=== PATIENT | male | born 1955 | race Caucasian/White ===

== ENCOUNTER 2020-09-30 23:16 | Inpatient (IN) ==
[2020-09-30 23:41] LABS: Basophils # 0.1 K/mcL (0.0-0.2); Basophils % 0.5 %; Eosinophils # 0.3 K/mcL (0.0-0.6); Eosinophils % 1.8 %; Hematocrit 38.6 % (37.5-50.1); Hemoglobin 12.5 g/dL (12.9-16.9); Immature Granulocytes % 0.4 % (0-4); Lymphocytes # 2.7 K/mcL (0.6-4.6); Lymphocytes % 17.7 %; Mean Corpuscular HGB Conc 32.4 g/dL (31.6-35.5); Mean Corpuscular Hemoglobin 29.6 pg (28.0-33.3); Mean Corpuscular Volume 91.3 fL (83.0-100.0); Mean Platelet Volume 9.1 fL (9.4-12.4); Monocytes # 0.9 K/mcL (0.0-1.3); Monocytes % 6.1 %; Neutrophils # 11.4 K/mcL (1.6-8.9); Platelet Count 242 K/mcL (140-400); Red Blood Count 4.23 M/mcL (4.19-5.50); Red Cell Distribution Width 14.8 % (11.5-14.5); Segmented Neutrophils % 73.5 %; White Blood Count 15.5 K/mcL (4.3-11.1)
[2020-09-30 23:48] LABS: Prothrombin Time 11.8 Seconds (9.4-12.1)
[2020-09-30 23:50] LABS: Activated Partial Thrombo Time 25.9 Seconds (26.0-36.0)
[2020-10-01] MEDS ORDERED: Isovue-370 500 ML BOTTLE IVP ONE (00:02)
[2020-10-01 00:05] LABS: Albumin 4.1 g/dL (3.5-5.7); Albumin/Globulin Ratio 1.4 (1.1-2.2); Bilirubin,Indirect 0.4 mg/dL (0.0-1.0); Bilirubin,Total 0.4 mg/dL (0.3-1.0); Calcium 8.7 mg/dL (8.6-10.3); Magnesium 1.9 mg/dL (1.6-2.6); Potassium 3.7 mEq/L (3.5-5.1); Total Protein 7.1 g/dL (6.4-8.9)
[2020-10-01 00:10] LABS: Troponin I 0.1 ng/mL (< 0.04)
[2020-10-01] MEDS ORDERED: NITROGLYCERIN IVC ONE (00:30)
[2020-10-01 00:34] LABS: ABG Base Excess -4 mEq/L (-2 to 3); ABG HCO3 21 mEq/L (21-27); ABG Oxygen Saturation 98 % (95-98); ABG PCO2 38 mmHg (35-45); ABG PH 7.35 pH Units (7.32-7.45); ABG PO2 101 mmHg (85-104); ABG TCO2 22 mEq/L (20-26)
[2020-10-01 00:43] LABS: Adenovirus Not Detected (Not Detect); Bordetella Pertussis Not Detected (Not Detect); Chlamydophila pneumoniae Not Detected (Not Detect); Coronavirus 229E Not Detected (Not Detect); Coronavirus HKU1 Not Detected (Not Detect); Coronavirus NL63 Not Detected (Not Detect); Coronavirus OC43 Not Detected (Not Detect); Human Metapneumovirus Not Detected (Not Detect); Human Rhinovirus/Enterovirus Not Detected (Not Detect); Influenza A Subtype 2009 H1 Not Detected (Not Detect); Influenza B Not Detected (Not Detect); Mycoplasma pneumoniae Not Detected (Not Detect); Parainfluenza Virus 1 Not Detected (Not Detect); Parainfluenza Virus 2 Not Detected (Not Detect); Parainfluenza Virus 3 Not Detected (Not Detect); Parainfluenza Virus 4 Not Detected (Not Detect); Respiratory Syncytial Virus Not Detected (Not Detect); SARS-CoV-2 Not Detected (Not Detect)
[2020-10-01] MEDS ORDERED: Furosemide 40 MG/4 ML VIAL IVP ONE (00:59)
[2020-10-01] MEDS ORDERED: *HR* Heparin 5,000 UNIT/ML VIAL IVP PRN ×2 (01:27)
[2020-10-01] MEDS ORDERED: *HR* Heparin 5,000 UNIT/ML VIAL IVP ONE (01:27)
[2020-10-01] MEDS ORDERED: cefTRIAXone 1,000 MG in Water for inj. (sterile) 10 ML IVP ONE (01:29)
[2020-10-01] MEDS ORDERED: Azithromycin 500 MG in 0.9 % Sodium Chloride 250 ML IVPB ONE (01:29)
[2020-10-01 01:57] LABS: Hematocrit 36.4 % (37.5-50.1); Hemoglobin 11.6 g/dL (12.9-16.9); Mean Corpuscular HGB Conc 31.9 g/dL (31.6-35.5); Mean Corpuscular Hemoglobin 28.9 pg (28.0-33.3); Mean Corpuscular Volume 90.5 fL (83.0-100.0); Platelet Count 220 K/mcL (140-400); Red Blood Count 4.02 M/mcL (4.19-5.50); Red Cell Distribution Width 14.9 % (11.5-14.5); White Blood Count 11.8 K/mcL (4.3-11.1)
[2020-10-01 02:01] LABS: Heparin anti-factor XA UFH 0.04 IU/mL (0.30-0.70); Prothrombin Time 12.1 Seconds (9.4-12.1)
[2020-10-01 02:03] LABS: Activated Partial Thrombo Time 25.2 Seconds (26.0-36.0)
[2020-10-01] MEDS: Heparin 25,000UNIT/250ML 1/2NS 25,000 UNIT/250 ML IV.SOLN IVC SCH (02:10)
[2020-10-01] MEDS ORDERED: Ondansetron 4 MG/2 ML VIAL IVP PRN (03:12)
[2020-10-01] MEDS ORDERED: Naloxone 0.4 MG/ML INJ IVP PRN (03:12)
[2020-10-01] MEDS ORDERED: Perflutren Lipid Microsphere 1.3 ML in 0.9 % Sodium Chloride 8.7 ML IVP PRN (04:01)
[2020-10-01 06:59] LABS: Hematocrit 34.1 % (37.5-50.1); Hemoglobin 11.1 g/dL (12.9-16.9); Mean Corpuscular HGB Conc 32.6 g/dL (31.6-35.5); Mean Corpuscular Hemoglobin 29.1 pg (28.0-33.3); Mean Corpuscular Volume 89.3 fL (83.0-100.0); Mean Platelet Volume 9.6 fL (9.4-12.4); Platelet Count 199 K/mcL (140-400); Red Blood Count 3.82 M/mcL (4.19-5.50); Red Cell Distribution Width 14.8 % (11.5-14.5); White Blood Count 8.3 K/mcL (4.3-11.1)
[2020-10-01 07:19] LABS: Calcium 8.8 mg/dL (8.6-10.3)
[2020-10-01 08:35] LABS: Troponin I 1.21 ng/mL (< 0.04)
[2020-10-01 10:00] LABS: Calcium 8.6 mg/dL (8.6-10.3); Potassium 3.9 mEq/L (3.5-5.1)
[2020-10-01] MEDS: Metoprolol XL (24 HR) Succ 25 MG TAB.ER.24H PO SCH ×2 (12:00→19:54)
[2020-10-01] MEDS: Aspirin Enteric Coated 81 MG Tablet PO SCH (12:00)
[2020-10-01 13:18] LABS: Estimated Average Glucose 140 mg/dl; Hemoglobin A1C 6.5 %
[2020-10-01 16:49] LABS: Bilirubin,Urine Negative (Negative); Blood,Urine Negative (Negative); Clarity,Urine Clear (Clear); Color,Urine Light-Yellow (Yellow); Glucose,Urine (UA) Normal (Normal); Ketones,Urine Negative (Negative); Leukocyte Esterase,Urine Negative (Negative); Nitrite,Urine Negative (Negative); PH,Urine 5.5 pH Units (5.0-8.0); Protein,Urine Trace mg/dL (Neg-Trace); Specific Gravity,Urine > 1.030 (1.010-1.025); Urobilinogen,Urine Normal (Normal)
[2020-10-01 16:58] LABS: Protein/Creatinine Ratio,Urine 0.17 mg/mg (0.00-0.20); Sodium, Urine 118.3 mEq/L
[2020-10-02] MEDS: Heparin 25,000UNIT/250ML 1/2NS 25,000 UNIT/250 ML IV.SOLN IVC SCH (01:53)
[2020-10-02 06:33] LABS: Basophils # 0.1 K/mcL (0.0-0.2); Eosinophils # 0.3 K/mcL (0.0-0.6); Eosinophils % 3.4 %; Hematocrit 32.1 % (37.5-50.1); Hemoglobin 10.4 g/dL (12.9-16.9); Immature Granulocytes % 0.4 % (0-4); Lymphocytes % 36.3 %; Mean Corpuscular HGB Conc 32.4 g/dL (31.6-35.5); Mean Corpuscular Hemoglobin 29.7 pg (28.0-33.3); Mean Corpuscular Volume 91.7 fL (83.0-100.0); Mean Platelet Volume 9.6 fL (9.4-12.4); Monocytes # 0.6 K/mcL (0.0-1.3); Monocytes % 7.4 %; Neutrophils # 4.3 K/mcL (1.6-8.9); Platelet Count 193 K/mcL (140-400); Red Cell Distribution Width 14.8 % (11.5-14.5); Segmented Neutrophils % 51.5 %; White Blood Count 8.3 K/mcL (4.3-11.1)
[2020-10-02 06:58] LABS: Calcium 8.6 mg/dL (8.6-10.3); Potassium 3.9 mEq/L (3.5-5.1)
[2020-10-02] MEDS: Metoprolol XL (24 HR) Succ 25 MG TAB.ER.24H PO SCH ×2 (08:38→20:18)
[2020-10-02] MEDS: Aspirin Enteric Coated 81 MG Tablet PO SCH (08:38)
[2020-10-02] MEDS ORDERED: Metoprolol XL (24 HR) Succ 25 MG TAB.ER.24H PO ONE (09:30)
[2020-10-02] MEDS: *HR* Buprenorphine HCl 8 MG TAB.SUBL SL SCH ×2 (09:56→20:18)
[2020-10-02 22:56] LABS: Creatinine,Urine 49 mg/dL; Microalbumin,Urine < 7 mg/L
[2020-10-03] MEDS ORDERED: Ipratropium/Albuterol Neb 3 ML IH PRN (03:56)
[2020-10-03] MEDS: Heparin 25,000UNIT/250ML 1/2NS 25,000 UNIT/250 ML IV.SOLN IVC SCH (04:10)
[2020-10-03 04:11] LABS: Albumin 3.7 g/dL (3.5-5.7); Calcium 8.6 mg/dL (8.6-10.3); Magnesium 2.1 mg/dL (1.6-2.6); Potassium 4.2 mEq/L (3.5-5.1)
[2020-10-03] MEDS: Metoprolol XL (24 HR) Succ 25 MG TAB.ER.24H PO SCH (08:08)
[2020-10-03] MEDS: Aspirin Enteric Coated 81 MG Tablet PO SCH (08:08)
[2020-10-03] MEDS: *HR* Buprenorphine HCl 8 MG TAB.SUBL SL SCH ×2 (08:08→20:49)
[2020-10-03] MEDS ORDERED: Nitroglycerin 1,000 MCG/10 ML VIAL IV ONE (10:28)
[2020-10-03] MEDS ORDERED: ISOVUE-370 200 ML INFUS..BTL ONE (10:28)
[2020-10-03] MEDS ORDERED: *HR* Heparin 10,000 UNIT/10 ML VIAL ONE (10:28)
[2020-10-03] MEDS ORDERED: Heparin 1,000 UNITS/500 mL 500 ML ONE (10:28)
[2020-10-03] MEDS ORDERED: 0.9 % Sodium Chloride 2,000 ML ONE (10:28)
[2020-10-03] MEDS ORDERED: *HR* Midazolam HCl 2 MG/2 ML VIAL ONE (10:36)
[2020-10-03] MEDS ORDERED: *HR* FentaNYL (PF) 100 MCG/2 ML VIAL ONE (10:36)
[2020-10-03] MEDS ORDERED: *HR* Labetalol 100 MG/20 ML MDV ONE (11:21)
[2020-10-03] MEDS: amLODIPine 5 MG TABLET PO SCH (12:18)
[2020-10-03] MEDS: Metoprolol XL (24 HR) Succ 50 MG TAB.ER.24H PO SCH (20:49)
[2020-10-04 06:48] LABS: Basophils # 0.1 K/mcL (0.0-0.2); Basophils % 0.9 %; Eosinophils # 0.2 K/mcL (0.0-0.6); Eosinophils % 3.7 %; Hematocrit 33.4 % (37.5-50.1); Hemoglobin 10.3 g/dL (12.9-16.9); Immature Granulocytes % 0.3 % (0-4); Lymphocytes # 1.9 K/mcL (0.6-4.6); Lymphocytes % 28.3 %; Mean Corpuscular HGB Conc 30.8 g/dL (31.6-35.5); Mean Corpuscular Hemoglobin 28.6 pg (28.0-33.3); Mean Corpuscular Volume 92.8 fL (83.0-100.0); Mean Platelet Volume 10.4 fL (9.4-12.4); Monocytes # 0.6 K/mcL (0.0-1.3); Monocytes % 9.8 %; Neutrophils # 3.7 K/mcL (1.6-8.9); Platelet Count 180 K/mcL (140-400); Red Cell Distribution Width 14.7 % (11.5-14.5); White Blood Count 6.5 K/mcL (4.3-11.1)
[2020-10-04 07:08] LABS: Calcium 8.7 mg/dL (8.6-10.3); Potassium 4.1 mEq/L (3.5-5.1)
[2020-10-04] MEDS: Aspirin Enteric Coated 81 MG Tablet PO SCH (08:59)
[2020-10-04] MEDS: amLODIPine 5 MG TABLET PO SCH (08:59)
[2020-10-04] MEDS: *HR* Buprenorphine HCl 8 MG TAB.SUBL SL SCH (09:00)
[2020-10-04] MEDS: Metoprolol XL (24 HR) Succ 50 MG TAB.ER.24H PO SCH (09:04)
[2020-10-04 10:30] VITALS: BP 169/81
[2020-10-04] MEDS ORDERED: Metoprolol XL (24 HR) Succ 50 MG TAB.ER.24H PO SCH (11:15)
[2020-10-04] MEDS ORDERED: hydrALAZINE 25 MG TABLET PO SCH (16:00)
== END 2020-10-04 11:22 | disposition home or self-care (01) | DRG 280 ==
LOC: ICNU 23:16 → EMEROOARM 23:16 → SUATTDRO 10-01 02:18 → ICNU 10-01 03:27 → SUATTDRO 10-02 15:32
PROVIDERS: ADMIT Student in an Organized Health Care Education/Training Program; ATTEND Internal Medicine